=== PATIENT | female | born 1970 | race Caucasian/White ===

== ENCOUNTER 2019-03-09 19:36 | Emergency (ER) | payer MEDICAID ==
[~2019-03-09] VITALS: Ht 175.3 cm; Wt 110.7 kg
[~2019-03-09 19:36] MED LIST: LEXAPRO 10 MG T10 MG; NORCO 5-325 TA1 EACH PO
[2019-03-09] MEDS ORDERED: LIPITOR10 MG PO (19:51)
[2019-03-09] MEDS ORDERED: NEURONTIN 300300 M1 PO (19:51)
[2019-03-09 20:05] LABS: ABSOLUTE BASOPHILS 0.1 thou/uL (0.0-0.2); ABSOLUTE LYMPHOCYTES 2.3 thou/uL (0.8-5.3); ABSOLUTE MONOCYTES 0.7 thou/uL (0.0-1.2); BASOPHILS 0.6 %; EOSINOPHILS 0.5 %; HEMATOCRIT 44.2 % (37.0-47.0); HEMOGLOBIN 14.9 gm/dL (12.0-15.0); LYMPHOCYTES 28.3 %; MCHC 33.8 g/dL (28.0-37.0); MCV 91.8 fL (80.0-100.0); MONOCYTES 8.9 %; MPV 7.8 fl. (7.2-11.1); NUCLEATED RBCS 0 /100WBC; PLATELET COUNT* 304 thou/uL (150-400); POLYS 61.7 %; RBC 4.81 mil/uL (4.20-5.00); RDW-CV 14.1 % (10.5-14.5)
[2019-03-09 20:16] LABS: CALCIUM 9.3 mg/dL (8.5-10.1); CREATININE 0.9 mg/dL (0.6-1.3); POTASSIUM 3.5 mmol/L (3.5-5.1)
[2019-03-09 20:20] LABS: TOTAL BILIRUBIN 0.3 mg/dL (<0.1-1.0); TOTAL PROTEIN 7.6 g/dL (6.4-8.2)
[2019-03-09 21:01] LABS: URINE BILIRUBIN NEGATIVE (Negative); URINE BLOOD NEGATIVE (Negative); URINE CLARITY CLEAR; URINE COLOR YELLOW; URINE GLUCOSE-RANDOM NEGATIVE (Negative); URINE KETONES NEGATIVE (Negative); URINE LEUKOCYTES-REFLEX NEGATIVE (Negative); URINE NITRITE-REFLEX NEGATIVE (Negative); URINE PROTEIN NEGATIVE (Negative); URINE SPECIFIC GRAVITY <= 1.005 (1.005-1.030); URINE UROBILINOGEN 0.2 E.U./dl (0.2-1.0)
[2019-03-09 21:09] LABS: AMP/METHAMP Negative (Negative); BARBITURATES Negative (Negative); BENZODIAZEPINES Negative (Negative); COCAINE Negative (Negative); METHADONE Negative (Negative); OPIATES POSITIVE (Negative); PCP Negative (Negative); THC Negative (Negative)
[2019-03-09] MEDS ORDERED: NAPROSYN500 MG PO (21:36)
[2019-03-09] MEDS ORDERED: OXYCODONE-ACET1 EAC2 PO (21:36)
[2019-03-09] MEDS ORDERED: BACITRAYCIN PLU28 GM TOP (21:37)
[2019-03-09 22:04] VITALS: BP 118/66
== END 2019-03-09 22:04 | disposition home or self-care (01) ==
LOC: M.ERS 19:36
PROVIDERS: Emergency Medicine
DX: T22.20XA Burn of second degree of shoulder and upper limb, except wrist and hand, unspecified site, initial encounter (principal); T31.0 Burns involving less than 10% of body surface; M79.7 Fibromyalgia; Z88.6 Allergy status to analgesic agent

== ENCOUNTER 2020-05-24 09:07 | Emergency (ER) | payer MEDICAID ==
[~2020-05-24] VITALS: Ht 175.3 cm; Wt 101.2 kg
[~2020-05-24 09:07] MED LIST changes: +BACITRAYCIN PLU28 GM TOP; +LIPITOR10 MG PO; +NAPROSYN500 MG PO; +NEURONTIN 300300 M1 PO; +OXYCODONE-ACET1 EAC2 PO
[2020-05-24] MEDS ORDERED: NORVASC 2.5 MG2.5 M1 PO (10:03)
[2020-05-24] MEDS ORDERED: METFORMIN HCL500 M3 PO (10:04)
[2020-05-24] MEDS ORDERED: CYCLOBENZAPRINE5 MG PO (10:05)
[2020-05-24] MEDS ORDERED: TRAMADOL HCL50 MG PO (10:05)
[2020-05-24] MEDS ORDERED: NORCO 5-325 TA1 EAC2 PO (13:00)
[2020-05-24 13:29] VITALS: BP 147/90
== END 2020-05-24 13:30 | disposition home or self-care (01) ==
LOC: M.ERS 09:07
DX: S63.8X2A Sprain of other part of left wrist and hand, initial encounter (principal); M79.7 Fibromyalgia; Z98.890 Other specified postprocedural states; Z79.899 Other long term (current) drug therapy; Z88.6 Allergy status to analgesic agent; W20.8XXA Other cause of strike by thrown, projected or falling object, initial encounter; Y93.89 Activity, other specified; Y92.89 Other specified places as the place of occurrence of the external cause; Y99.8 Other external cause status